=== PATIENT | male | born 1950 | race Native Hawaiian/Other Pacific Islander ===

== ENCOUNTER 2016-11-20 00:22 | Emergency (ER) | payer OTHER, MEDICARE ==
[~2016-11-20] VITALS: Ht 175.3 cm; Wt 126.6 kg
[2016-11-20 00:30] LABS: PLATELET COUNT 312 K/uL (142-355)
[2016-11-20] MEDS ORDERED: NEXIUM40 M1 PO (00:51)
[2016-11-20] MEDS ORDERED: CARV6.25 PO (00:52)
[2016-11-20] MEDS ORDERED: RANO500T PO (00:53)
[2016-11-20] MEDS ORDERED: METF100038 OR (00:54)
[2016-11-20] MEDS ORDERED: VALSARTAN80 MG PO (00:55)
[2016-11-20] MEDS ORDERED: ASPIRIN LOW STR81 MG OR (00:56)
[2016-11-20] MEDS ORDERED: JANUMET1 TA1 PO (00:58)
[2016-11-20 01:04] LABS: POTASSIUM 4.9 mmol/L (3.6-5.2)
[2016-11-20 02:12] LABS: LDL CHOLESTEROL 202.4 mg/dL (0-99*)
[2016-11-20 08:10] VITALS: BP 147/68; TEMP 98.4
== END 2016-11-20 08:10 | disposition short-term general hospital (02) ==
LOC: ED 00:22
DX: R07.89 Other chest pain (principal); R94.31 Abnormal electrocardiogram [ECG] [EKG]; K21.9 Gastro-esophageal reflux disease without esophagitis; J81.0 Acute pulmonary edema; I50.9 Heart failure, unspecified; E11.9 Type 2 diabetes mellitus without complications
CPT/HCPCS: 36415; 36600; 80053; 80061; 82550; 82805; 83036; 83880; 84484; 85027; 85379; 93005; 96372; 96374; 96375; 96376; 99284; J1650; J1815; J1940; J3490

== ENCOUNTER 2017-06-24 06:05 | Outpatient (CLI) | payer OTHER, MEDICARE ==
[~2017-06-24 06:05] MED LIST: ASPIRIN LOW STR81 MG OR; CARV6.25 PO; JANUMET1 TA1 PO; METF100038 OR; NEXIUM40 M1 PO; RANO500T PO; VALSARTAN80 MG PO
[2017-06-24 06:29] LABS: PLATELET COUNT 258 K/uL (142-355)
[2017-06-24 06:44] LABS: POTASSIUM 4.1 mmol/L (3.6-5.2)
== END 2017-06-24 07:05 | disposition home or self-care (01) ==
LOC: EDBD 06:05 → LABW 06:05
DX: Z79.899 Other long term (current) drug therapy (principal); I25.10 Atherosclerotic heart disease of native coronary artery without angina pectoris; D64.89 Other specified anemias; E11.9 Type 2 diabetes mellitus without complications; E78.00 Pure hypercholesterolemia, unspecified
CPT/HCPCS: 36415; 80053; 80061; 83036; 85027

== ENCOUNTER 2017-09-15 12:36 | Outpatient (CLI) | payer OTHER, MEDICARE | END 2017-09-15 18:56 | disposition home or self-care (01) | LOC: RAD 12:36 | DX: M25.512 Pain in left shoulder (principal) ==